=== PATIENT | male | born 1945 ===

== ENCOUNTER 2018-05-02 13:39 | Inpatient (IN) | payer OTHER ==
[~2018-05-02] VITALS: Ht 154.9 cm; Wt 78.0 kg
== END 2018-06-03 17:19 | disposition home or self-care (01) | DRG 330 ==
LOC: O/R 06-01 05:30 → SURG 06-01 05:30 → SURH 06-01 11:15 → SURG 06-02 12:03
PROVIDERS: ADMIT Colon & Rectal Surgery
PROC: 07TC4ZZ Resection of Pelvis Lymphatic, Percutaneous Endoscopic Approach (ICD-10-PCS; 2018-06-01)
PROC: 0DTU4ZZ Resection of Omentum, Percutaneous Endoscopic Approach (ICD-10-PCS; 2018-06-01)
PROC: 4A033R1 Measurement of Arterial Saturation, Peripheral, Percutaneous Approach (ICD-10-PCS; 2018-06-01)
PROC: 4A12X4Z Monitoring of Cardiac Electrical Activity, External Approach (ICD-10-PCS; 2018-06-01)
PROC: 0DTF4ZZ Resection of Right Large Intestine, Percutaneous Endoscopic Approach (ICD-10-PCS; principal; 2018-06-01 11:15)
DX: C18.2 Malignant neoplasm of ascending colon (principal); C78.6 Secondary malignant neoplasm of retroperitoneum and peritoneum; D12.2 Benign neoplasm of ascending colon